=== PATIENT | female | born 1990 | race Hispanic/Latino ===

== ENCOUNTER → 2025-06-30 | Day surgery (SDC) | payer BC ==
[2025-06-22 16:14] LABS: BASOPHILS % 0.7 % (0.0-1.0); EOSINOPHILS % 1.6 % (0.0-6.0); LYMPHOCYTES % 28.2 % (18.0-39.1); MONOCYTES % 5.9 % (4.4-11.3); NEUTROPHILS % 63.4 % (38.7-80.0); RED CELL DISTRIBUTION WIDTH 13.2 % (11.7-14.4)
[2025-06-22 16:49] LABS: EST GLOMERULAR FILTRATION RATE 118.0 ML/MIN (>=60)
[~2025-06-30] MED LIST: ACETAMINOPHEN 1000 MG/100 ML 100 ML IV ONE; DEXAMETHASONE SOD PHOS INJ 4 MG/ML SDV ONE; EPHEDRINE SULFATE INJ 50 MG/ML VIAL ONE; FAMOTIDINE 20 MG/2 ML VIAL IV ONE; FENTANYL CITRATE/PF 100MCG/2 ML INJ ONE; HYDROMORPHONE 1MG/1ML INJ ONE; LIDOCAINE HCL 2% LOCAL INJ 5 ML SDV VIAL INJ ONE; MELOXICAM7.5 MG PO; MEPERIDINE HCL INJ 25 MG/ML VIAL ONE; ONDANSETRON HCL INJ 2MG/ML 2ML 2 MG/ML VIAL ONE; OZEMPIC0.25 MG/02; PROPOFOL IV EMULSION 10 MG/ML 20 ML VIAL ONE; SEVOFLURANE INHAL SOLN 250 ML PEN BTL ONE
[2025-06-30] MEDS: LACTATED RINGER'S 1,000 ML ONE (12:41)
[2025-06-30] MEDS: CEFAZOLIN SODIUM 2 GM ONE (12:41)
[2025-06-30 15:15] VITALS: TEMP 97.6
[2025-06-30 16:25] VITALS: BP 120/75; PULSE 92; RESP 16; O2SAT 100
== END | disposition home or self-care (01) ==
LOC: OR 06-29 11:13
PROVIDERS: ATTEND Orthopaedic Surgery
DX: S83.281A Other tear of lateral meniscus, current injury, right knee, initial encounter (principal); S83.241A Other tear of medial meniscus, current injury, right knee, initial encounter; M25.362 Other instability, left knee; M22.11 Recurrent subluxation of patella, right knee; M94.261 Chondromalacia, right knee; M65.161 Other infective (teno)synovitis, right knee; X58.XXXA Exposure to other specified factors, initial encounter; Z79.1 Long term (current) use of non-steroidal anti-inflammatories (NSAID); Z79.85 Long-term (current) use of injectable non-insulin antidiabetic drugs; Z01.812 Encounter for preprocedural laboratory examination
CPT/HCPCS: 36415; 76000; 80053; 81025; 85025; C1713; C1769; J1100; J1171; J1308; J2003; J2175; J2405